=== PATIENT | male | born 1970 | race Caucasian/White ===

== ENCOUNTER → 2019-01-09 | Outpatient (CLI) | payer OTHER ==
[~2019-01-09] MED LIST: GADOBUTROL 7.5 MMOL/7.5 ML VIAL INT ART ONE; IOHEXOL 300 MG/ML 50 ML VIAL. INT ART ONE; LIDOCAINE 1% Multi-Dose 20 ML VIAL. ID ONE
--- NOTE | 2019-01-09 16:39 | KCIC ---
MRI arthrogram of the right shoulder HISTORY: Right shoulder pain, numbness down right arm for 6 or 7 months. Chronic impingement TECHNIQUE: Routine multiplanar sequences are obtained. FINDINGS: Acromioclavicular joint is intact. No evidence of a rotator cuff tear. Trace subdeltoid bursal fluid without contrast accumulation. Articular cartilage intact. Small superior labral tear. Biceps tendon intact. No aggressive bone destruction or acute fracture. No acute soft tissue abnormality. IMPRESSION: 1. Superior labral tear. 2. No rotator cuff tear. Electronically signed by: Nima Win MD (01/09/2019 4:36 PM) [facility]
--- NOTE | 2019-01-09 17:12 | KCIC ---
Fluoroscopically guided injection of the right shoulder prior to right MR arthrogram 01/09/2019 Clinical history: Chronic right shoulder pain and right arm numbness. Technique: After the risks and benefits of the procedure were explained to the patient, written informed consent was obtained. The anterior skin surface of the right shoulder was prepped and draped in sterile fashion. 1% lidocaine was used as local anesthetic. Under fluoroscopic guidance, a 22-gauge spinal needle was advanced into the anterior aspect of the right glenohumeral joint. A solution containing 5 cc of 1 percent lidocaine, 5 cc of Omnipaque 300, 10 cc of normal saline and 0.1 cc of Gadavist was injected into the right glenohumeral joint under fluoroscopic control. Following this the needle was removed and hemostasis achieved at the puncture site. A sterile bandage was placed on the skin puncture site. The patient tolerated the procedure well and there were no immediate complications. The total fluoroscopic time for this study was 22 seconds. 1 digital fluoroscopic captured radiograph of the right shoulder was obtained. The patient was then taken to MRI for further imaging. Impression: Technically successful injection of the right shoulder joint under fluoroscopy to facilitate a MR arthrogram as outlined above. Electronically signed by: Adis Ibrahim MD (01/09/2019 5:08 PM) [id number]
== END | disposition home or self-care (01) ==
LOC: KCIC 13:49
PROVIDERS: ATTEND Physician Assistant
DX: S43.431A Superior glenoid labrum lesion of right shoulder, initial encounter (principal); M75.41 Impingement syndrome of right shoulder; Z88.8 Allergy status to other drugs, medicaments and biological substances; X58.XXXA Exposure to other specified factors, initial encounter; Y93.89 Activity, other specified; Y92.89 Other specified places as the place of occurrence of the external cause; Y99.8 Other external cause status
CPT/HCPCS: 23350; 73040; 73222; A9585; Q9967